=== PATIENT | female | born 1965 | race Caucasian/White ===

== ENCOUNTER 2016-10-19 20:07 | Emergency (ER) | payer MEDICAID ==
[2016-10-19] MEDS ORDERED: DEXAMETHASONE 10 MG/ML VIAL PO STA (20:19)
[2016-10-19] MEDS ORDERED: KETOROLAC 60 MG/2 ML VIAL IM STA (20:19)
[2016-10-19] MEDS ORDERED: DEXAMETHASONE 10 MG/ML VIAL ONE (20:27)
[2016-10-19] MEDS ORDERED: KETOROLAC 60 MG/2 ML VIAL ONE (20:27)
== END 2016-10-19 20:39 | disposition home or self-care (01) ==
DX: M26.622 Arthralgia of left temporomandibular joint (principal); I10 Essential (primary) hypertension; E11.9 Type 2 diabetes mellitus without complications; Z79.84 Long term (current) use of oral hypoglycemic drugs

== ENCOUNTER 2017-05-05 04:18 | Emergency (ER) | payer MEDICAID ==
[2017-05-05 04:25] VITALS: BP 165/104
--- NOTE | 2017-05-05 04:54 | ED Physician Documentation ---
PD HPI HEENT - Stated complaint Stated Complaint: TOOTHACHE - Chief complaint Chief Complaint: Heent - History obtained from History obtained from: Patient - History of Present Illness Timing - onset: Yesterday Timing - details: Gradual onset Pain level now: 8 Improves: Nothing Worsens: Temperatures, Other (palpation/chewing) Recently seen: Other (had dental cleaning Friday (2 days ago)) Review of Systems Constitutional: denies: Fever Throat: reports: Dental pain / toothache PD PAST MEDICAL HISTORY - Past Medical History Cardiovascular: Hypertension Endocrine/Autoimmune: Type 2 diabetes GI: GERD - Past Surgical History Past Surgical History: Yes General: Gastric surgery - Present Medications Home Medications: Ambulatory Orders Medication Instructions Recorded Confirmed Cetirizine HCl [Zyrtec] 10 mg PO DAILY 07/14/14 12/22/14 Cholecalciferol (Vitamin D3) 1,000 units PO BID 07/14/14 12/22/14 [Vitamin D3] Metformin HCl [Fortamet] 500 mg PO BID 07/14/14 12/22/14 Metoprolol Succinate 25 mg PO DAILY 07/14/14 12/22/14 Phenazopyridine [Pyridium] 200 mg PO TID 3 Days 07/14/14 12/22/14 Spironolactone 50 mg PO DAILY 07/14/14 12/22/14 Fluconazole [Diflucan] 150 mg PO ONCE #1 tablet 12/22/14 Ibuprofen 600 mg PO DAILY PRN 12/22/14 12/22/14 Penicillin Vk 500 mg PO Q6H 10 Days 12/22/14 Penicillin Vk 500 mg PO Q6H 10 Days 07/10/15 Penicillin V Potassium 500 mg PO QID 5 Days 05/05/17 - Allergies Allergies/Adverse Reactions: Allergies Allergy/AdvReac Type Severity Reaction Status Date / Time Sulfa (Sulfonamide Allergy Unknown Verified 05/05/17 04:25 Antibiotics) thioridazine HCl * Allergy Unknown Verified 05/05/17 04:25 [From Mellaril] - Social History Does the pt smoke?: No Smoking Status: Never smoker Does the pt drink ETOH?: Yes Does the pt have substance abuse?: No - Immunizations Immunizations are current?: Yes - POLST Patient has POLST: No PD ED PE NORMAL - Vitals Vital signs reviewed: Yes - General General: Alert and oriented X 3, No acute distress, Well developed/nourished PD ED PE EXPANDED - HEENT HEENT Visual: 1 - tenderness (TTP, minimal decay visualized. no erythema or swelling of gingiva, no fluctuance) Results - Vitals Vitals: Vital Signs - 24 hr 05/05/17 04:21 Temperature 36.2 C L Heart Rate 74 Respiratory 18 Rate Blood Pressure 165/104 H O2 Saturation 98 Oxygen O2 Source Room air PD MEDICAL DECISION MAKING - ED course Complexity details: reviewed old records, considered differential, d/w patient Departure - Departure Disposition: 01 Home, Self Care Clinical Impression: Pain, dental Condition: Good Instructions: ED Tooth Pain Follow-Up: Reyna Reece ARNP [Primary Care Provider] - Prescriptions: Penicillin V Potassium 500 mg PO QID 5 Days Discharge Date/Time: 05/05/17 05:54
[2017-05-05] MEDS ORDERED: HYDROcod/ACET 5/325 Prepack 6 PO STA (05:10)
[2017-05-05] MEDS ORDERED: KETOROLAC 60 MG/2 ML VIAL IM STA (05:10)
[2017-05-05] MEDS ORDERED: PENICILLIN VK 250 MG TABLET PO STA (05:11)
[2017-05-05] MEDS ORDERED: HYDROcod/ACET 5/325 Prepack 6 PO ONE (05:20)
[2017-05-05] MEDS ORDERED: PENICILLIN VK 250 MG TABLET PO ONE (05:21)
[2017-05-05] MEDS ORDERED: KETOROLAC 60 MG/2 ML VIAL ONE (05:21)
== END 2017-05-05 05:54 | disposition home or self-care (01) ==
LOC: ED 04:18
DX: K08.89 Other specified disorders of teeth and supporting structures (principal); I10 Essential (primary) hypertension; E11.9 Type 2 diabetes mellitus without complications; Z79.84 Long term (current) use of oral hypoglycemic drugs
CPT/HCPCS: 96372; 99283; A9270

== ENCOUNTER 2017-05-06 17:24 | Emergency (ER) | payer MEDICAID ==
[2017-05-06 17:38] VITALS: BP 184/92
== END 2017-05-06 19:15 | disposition left against medical advice (07) ==
LOC: ED 17:24
DX: K08.89 Other specified disorders of teeth and supporting structures (principal); Z53.21 Procedure and treatment not carried out due to patient leaving prior to being seen by health care provider

== ENCOUNTER 2017-08-27 | Emergency (ER) | payer MEDICAID ==
[2017-08-27 00:17] VITALS: BP 159/92
[2017-08-27 00:18] LABS: BILIRUBIN,URINE NEGATIVE (NEGATIVE)
[2017-08-27 00:19] LABS: HCG UR QUAL NEGATIVE; UA w/ MICROSCOPIC CHARGE YES
[2017-08-27 00:26] LABS: UR CULTURE IF IND INDICATED; WBC,URINE >25 /HPF (0-5)
[2017-08-27] MEDS ORDERED: cephALEXin 250 MG CAPSULE PO STA (00:35)
[2017-08-27] MEDS ORDERED: PHENAZOPYRIDINE 100 MG TABLET PO STA (00:35)
--- NOTE | 2017-08-27 00:41 | ED Physician Documentation ---
PD HPI FEMALE - Stated complaint Stated Complaint: FEMALE - Chief complaint Chief Complaint: UTI - History obtained from History obtained from: Patient - History of Present Illness Timing - onset: Today Timing - details: Gradual onset, Still present Associated symptoms: Pelvic pain, Dysuria, Urinary frequency. No: Fever, Abdominal pain Similar symptoms before: Work up / diagnostics, Treatment Recently seen: Not recently seen - Additional information Additional information: Patient is a 51 year old female with a history of recurrent urinary tract infections who is presenting to the emergency department Review of Systems Constitutional: denies: Fever, Chills Eyes: reports: Reviewed and negative Ears: reports: Reviewed and negative Nose: reports: Reviewed and negative Throat: reports: Reviewed and negative Cardiac: reports: Reviewed and negative Respiratory: reports: Reviewed and negative GI: reports: Abdominal Pain, Nausea. denies: Vomiting, Constipation, Diarrhea : reports: Dysuria, Frequency Skin: denies: Rash, Lesions Musculoskeletal: reports: Reviewed and negative Neurologic: denies: Generalized weakness, Focal weakness Immunocompromised: denies: Immunocompromised PD PAST MEDICAL HISTORY - Past Medical History Cardiovascular: Hypertension Respiratory: Asthma, COPD Endocrine/Autoimmune: Type 2 diabetes GI: GERD : Chronic bladder infection Psych: Depression - Past Surgical History Past Surgical History: Yes General: Gastric surgery - Present Medications Home Medications: Ambulatory Orders Medication Instructions Recorded Confirmed Cetirizine HCl [Zyrtec] 10 mg PO DAILY 07/14/14 08/27/17 Cholecalciferol (Vitamin D3) 1,000 units PO BID 07/14/14 08/27/17 [Vitamin D3] Metformin HCl [Fortamet] 500 mg PO BID 07/14/14 08/27/17 Metoprolol Succinate 25 mg PO DAILY 07/14/14 08/27/17 Phenazopyridine [Pyridium] 200 mg PO TID 3 Days tablet 07/14/14 08/27/17 Spironolactone 50 mg PO DAILY 07/14/14 08/27/17 Fluconazole [Diflucan] 150 mg PO ONCE #1 tablet 12/22/14 08/27/17 Ibuprofen 600 mg PO DAILY PRN 12/22/14 08/27/17 Cephalexin [Keflex] 500 mg PO BID #14 capsule 08/27/17 Hydrochlorothiazide 25 mg PO PRN PRN 08/27/17 08/27/17 Phenazopyridine HCl [Pyridium] 200 mg PO TID PRN #6 tablet 08/27/17 - Allergies Allergies/Adverse Reactions: Allergies Allergy/AdvReac Type Severity Reaction Status Date / Time Sulfa (Sulfonamide Allergy Unknown Verified 08/27/17 00:18 Antibiotics) thioridazine HCl * Allergy Unknown Verified 08/27/17 00:18 [From Mellaril] - Social History Does the pt smoke?: No Smoking Status: Never smoker Does the pt drink ETOH?: Yes Does the pt have substance abuse?: No - Immunizations Immunizations are current?: Yes - POLST Patient has POLST: No PD ED PE NORMAL - Vitals Vital signs reviewed: Yes - General General: Alert and oriented X 3, No acute distress - HEENT HEENT: Atraumatic, PERRL - Neck Neck: Supple, no meningeal sign - Cardiac Cardiac: RRR, No murmur - Respiratory Respiratory: No respiratory distress - Abdomen Abdomen: Non distended - Derm Derm: Normal color, Warm and dry, No rash - Extremities Extremities: No deformity, No tenderness to palpate, No edema - Neuro Neuro: Alert and oriented X 3, No motor deficit, No sensory deficit, Normal speech - Psych Psych: Normal mood, Normal affect PD ED PE EXPANDED - Abdomen Abdomen: Tender to palpation, Suprapubic. No: Rebound, Guarding Results - Vitals Vitals: Vital Signs - 24 hr 08/27/17 00:13 Temperature 36.9 C Heart Rate 79 Respiratory 18 Rate Blood Pressure 159/92 H O2 Saturation 97 Oxygen O2 Source Room air - Labs Labs: Laboratory Tests 08/27/17 00:10 Urine Color YELLOW Urine Clarity CLOUDY Urine pH 6.0 Ur Specific [place] >=1.030 H Urine Protein TRACE Urine Glucose (UA) NEGATIVE Urine Ketones NEGATIVE Urine Occult Blood LARGE H Urine Nitrite POSITIVE H Urine Bilirubin NEGATIVE Urine Urobilinogen 0.2 (NORMAL) Ur Leukocyte Esterase MODERATE H Urine RBC TNTC H Urine WBC >25 H Ur Squamous Epith Cells RARE Squamous Urine Bacteria None Seen Ur Microscopic Review INDICATED Urine Culture Comments INDICATED Urine HCG, Qual NEGATIVE PD MEDICAL DECISION MAKING - ED course Complexity details: reviewed old records, reviewed results, re-evaluated patient , considered differential, d/w patient ED course: Patient was seen and examined at bedside. Patient's urine was collected. Patient was treated for a urinary tract infection. Patient required no further work up and was stable for discharge [facility] outpatient follow up. Departure - Departure Disposition: 01 Home, Self Care Clinical Impression: Cystitis Condition: Good Instructions: ED UTI Cystitis Female Follow-Up: primary,care provider [Other] - As Needed Prescriptions: Cephalexin [Keflex] 500 mg PO BID #14 capsule Phenazopyridine HCl [Pyridium] 200 mg PO TID PRN #6 tablet PRN Reason: dysuria Comments: Your symptoms today are being caused by a urinary tract infection. You had your first dose of antibiotics today and will need to take them twice a day for the next week. You should stay well hydrated and drink plenty of water. You should follow up with your doctor if your symptoms persist. You may return to the emergency department at any time for new, worsening or uncontrollable symptoms. Discharge Date/Time: 08/27/17 00:53
[2017-08-27] MEDS ORDERED: PHENAZOPYRIDINE 100 MG TABLET PO ONE (00:48)
[2017-08-27] MEDS ORDERED: cephALEXin 250 MG CAPSULE PO ONE (00:50)
== END 2017-08-27 00:53 | disposition home or self-care (01) ==
LOC: ED
DX: N30.90 Cystitis, unspecified without hematuria (principal); I10 Essential (primary) hypertension; E11.8 Type 2 diabetes mellitus with unspecified complications; Z79.84 Long term (current) use of oral hypoglycemic drugs
CPT/HCPCS: 81001; 81025; 87077; 87086; 87181; 99283; A9270; 81003

== ENCOUNTER 2020-08-26 23:06 | Emergency (ER) | payer MEDICAID ==
[2020-08-26 23:27] LABS: BILIRUBIN,URINE NEGATIVE (NEGATIVE); GLUCOSE, URINE (UA) >=1000 mg/dL (NEGATIVE); KETONES,URINE (UA) NEGATIVE (NEGATIVE); LEUKOCYTE ESTERASE, URINE SMALL (NEGATIVE); NITRITE,URINE POSITIVE (NEGATIVE); OCCULT BLOOD,URINE LARGE (NEGATIVE); PROTEIN,URINE NEGATIVE (NEGATIVE); UROBILINOGEN,URINE 0.2 (NORMAL) E.U./dL (NORMAL)
[2020-08-26 23:28] LABS: CLARITY,URINE SL. CLOUDY (CLEAR)
[2020-08-26 23:34] LABS: BACTERIA,URINE Few /HPF (None Seen); SQUAMOUS EPITHELIAL CELL,UR RARE Squamous (<= Few)
--- NOTE | 2020-08-27 00:32 | ED Physician Documentation ---
PD HPI FEMALE - Stated complaint Stated Complaint: UTI SYMPTOMS - Chief complaint Chief Complaint: UTI - History obtained from History obtained from: Patient - History of Present Illness Timing - onset: Enter time (21:00), Today Timing - details: Abrupt onset Pain level max: 2 Associated symptoms: Dysuria, Urinary frequency. No: Fever Similar symptoms before: Diagnosis (similar to previous UTIs) Review of Systems Constitutional: denies: Fever GI: reports: Nausea. denies: Abdominal Pain, Vomiting : reports: Dysuria, Frequency Musculoskeletal: denies: Back pain PD PAST MEDICAL HISTORY - Past Medical History Cardiovascular: Hypertension Respiratory: Asthma, COPD Endocrine/Autoimmune: Type 2 diabetes GI: GERD : Chronic bladder infection Psych: Depression - Past Surgical History Past Surgical History: Yes General: Gastric surgery - Present Medications Home Medications: Ambulatory Orders Medication Instructions Recorded Confirmed Cholecalciferol (Vitamin D3) 1,000 units PO BID 07/14/14 08/27/17 [Vitamin D3] Metoprolol Succinate 25 mg PO DAILY 07/14/14 08/27/17 Fluconazole [Diflucan] 150 mg PO ONCE #1 tablet 12/22/14 08/27/17 Ibuprofen 600 mg PO DAILY PRN 12/22/14 08/27/17 Hydrochlorothiazide 25 mg PO PRN PRN 08/27/17 08/27/17 Insulin Regular, Human [Novolin R 08/26/20 Flexpen] Hydrocortisone Acetate [Proctocort] 30 mg RC DAILY #3 supp.rect 08/27/20 Nitrofurantoin Monohyd/M-Cryst 100 mg PO BID #14 capsule 08/27/20 [Macrobid 100 mg Capsule] Ondansetron Odt [Zofran] 4 mg TL Q6H PRN #10 tablet 08/27/20 Phenazopyridine HCl [Pyridium] 200 mg PO TID PRN #6 tablet 08/27/20 - Allergies Allergies/Adverse Reactions: Allergies Allergy/AdvReac Type Severity Reaction Status Date / Time Sulfa (Sulfonamide Allergy Unknown Verified 08/26/20 23:17 Antibiotics) thioridazine HCl * Allergy Unknown Verified 08/26/20 23:17 [From Mellaril] - Social History Does the pt smoke?: No Smoking Status: Never smoker Does the pt drink ETOH?: Yes Does the pt have substance abuse?: No - Immunizations Immunizations are current?: Yes - POLST Patient has POLST: No PD ED PE NORMAL - Vitals Vital signs reviewed: Yes - General General: Alert and oriented X 3, No acute distress, Well developed/nourished - Abdomen Abdomen: Soft, Non tender - Back Back: No CVA TTP Results - Vitals Vitals: Vital Signs - 24 hr 08/26/20 08/26/20 08/27/20 23:14 23:17 01:39 Temperature 36.1 C L 36.5 C 36.5 C Heart Rate 88 88 85 Respiratory 20 20 20 Rate Blood Pressure 177/100 H 177/100 H 162/90 H O2 Saturation 99 99 99 Oxygen O2 Source Room air - Labs Labs: Laboratory Tests 08/26/20 23:20 Urine Color YELLOW Urine Clarity SL. CLOUDY Urine pH 6.0 Ur Specific [place] 1.020 Urine Protein NEGATIVE Urine Glucose (UA) >=1000 H Urine Ketones NEGATIVE Urine Occult Blood LARGE H Urine Nitrite POSITIVE H Urine Bilirubin NEGATIVE Urine Urobilinogen 0.2 (NORMAL) Ur Leukocyte Esterase SMALL H Urine RBC 6-10 H Urine WBC 11-25 H Ur Squamous Epith Cells RARE Squamous Urine Bacteria Few Ur Microscopic Review INDICATED Urine Culture Comments INDICATED PD MEDICAL DECISION MAKING - ED course Complexity details: reviewed results, considered differential, d/w patient ED course: HPI and UA results are c/w UTI, will treat with macrobid and pyridium. Also describing intermittent nausea and thus zofran given and rx Departure - Departure Disposition: 01 Home, Self Care Clinical Impression: Urinary tract infection Condition: Good Instructions: ED UTI Cystitis Female Follow-Up: Tracey Metcalf MD [Primary Care Provider] - (If symptoms do not resolve in 2- 3 days) Prescriptions: Nitrofurantoin Monohyd/M-Cryst [Macrobid 100 mg Capsule] 100 mg PO BID #14 capsule Hydrocortisone Acetate [Proctocort] 30 mg RC DAILY #3 supp.rect Phenazopyridine HCl [Pyridium] 200 mg PO TID PRN #6 tablet PRN Reason: dysuria Ondansetron Odt [Zofran] 4 mg TL Q6H PRN #10 tablet PRN Reason: Nausea / Vomiting Discharge Date/Time: 08/27/20 01:39
[2020-08-27] MEDS ORDERED: PHENAZOPYRIDINE 100 MG TABLET PO STA (01:00)
[2020-08-27] MEDS ORDERED: NITROFURANTOIN MACRO 100 MG CAPSULE PO STA (01:01)
[2020-08-27] MEDS ORDERED: ONDANSETRON ODT 4 MG TABLET TL STA (01:01)
[2020-08-27 01:40] VITALS: BP 162/90
== END 2020-08-27 01:39 | disposition home or self-care (01) ==
LOC: ED 23:06
DX: N39.0 Urinary tract infection, site not specified (principal); R11.0 Nausea; I10 Essential (primary) hypertension; E11.9 Type 2 diabetes mellitus without complications; Z79.4 Long term (current) use of insulin
CPT/HCPCS: 81001; 87086; 87181; 99283; A9270; Q0162; 81003